=== PATIENT | female | born 1945 | race African-American/Black ===

== ENCOUNTER 2020-11-02 17:46 | Emergency (ER) | payer OTHER ==
[~2020-11-02] VITALS: Ht 165.1 cm; Wt 87.0 kg
[2020-11-02 17:48] VITALS: BP 144/86
== END 2020-11-02 17:53 | disposition left against medical advice (07) ==
LOC: ER 17:46
DX: M25.561 Pain in right knee (principal); Z53.21 Procedure and treatment not carried out due to patient leaving prior to being seen by health care provider; W18.39XA Other fall on same level, initial encounter; Y93.89 Activity, other specified; Y92.89 Other specified places as the place of occurrence of the external cause; Y99.8 Other external cause status